=== PATIENT | female | born 1980 | race Two or more races ===

== ENCOUNTER 2019-08-03 18:09 | Emergency (ER) | payer SELFPAY ==
[~2019-08-03] VITALS: Ht 167.6 cm; Wt 176.9 kg
[2019-08-03] MEDS ORDERED: HYDR-3165 PO (19:02)
[2019-08-03] MEDS ORDERED: MELO7.5T29 PO (19:02)
[2019-08-03] MEDS ORDERED: SULF1TAB24 PO (19:02)
--- NOTE | 2019-08-03 19:02 | PHYS DOC ---
Past History Past Medical History: No Pertinent History Past Surgical History: No Surgical History Smoking: Non-smoker Alcohol Use: None Drug Use: None Adult General Chief Complaint Chief Complaint: ABSCESS HPI HPI Patient is a 39-year-old female presents with a draining lesion on her buttocks. This began 3-4 days ago. No fever. Purulent drainage. No trauma. No nausea or vomiting. No change in her usual blood sugar range, she is a diabetic patient. She ate shortly before arrival. She does get some relief with [id number] ibuprofen, taking a prescription dosage of this. No radiation of the the discomfort.[] Review of Systems Review of Systems Constitutional: Denies fever or chills [] Eyes: Denies change in visual acuity, redness, or eye pain [] HENT: Denies nasal congestion or sore throat [] Respiratory: Denies cough or shortness of breath [] Cardiovascular: No chest pain or palpitations[] GI: Denies abdominal pain, nausea, vomiting, bloody stools or diarrhea [] : Denies dysuria or hematuria [] Musculoskeletal: Denies back pain or joint pain [] Integument: See history of present illness[] Neurologic: Denies headache, focal weakness or sensory changes [] Endocrine: Denies polyuria or polydipsia [] All other systems were reviewed and found to be within normal limits, except as documented in this note. Allergies Allergies Allergies Coded Allergies Type Severity Reaction Last Updated Verified No Known Drug Allergies 03/11/14 No Physical Exam Physical Exam Constitutional: Well developed, well nourished, no acute distress, non-toxic appearance. [] HENT: Normocephalic, atraumatic, bilateral external ears normal, oropharynx moist, no oral exudates, nose normal. [] Eyes: PERRLA, EOMI, conjunctiva normal, no discharge. [] Neck: Normal range of motion, no tenderness, supple, no stridor. [] Cardiovascular:Heart rate regular rhythm, no murmur [] Lungs & Thorax: Bilateral breath sounds clear to auscultation [] Abdomen: Bowel sounds normal, soft, no tenderness, no masses, no pulsatile masses. [] Skin: Warm, dry, no erythema, no rash. There is a draining wound on the left buttocks, near the cleft. There is induration around this area 3 cm in diameter. This area was examined with bead wire insulator present[] Back: No tenderness, no CVA tenderness. [] Extremities: No tenderness, no cyanosis, no clubbing, ROM intact, no edema. [] Neurologic: Alert and oriented X 3, normal motor function, normal sensory function, no focal deficits noted. [] Psychologic: Affect normal, judgement normal, mood normal. [] EKG EKG [] Radiology/Procedures Radiology/Procedures [] Course & Med Decision Making Course & Med Decision Making Pertinent Labs and Imaging studies reviewed. (See chart for details) ED course: Patient arrived, was placed in bed, and tolerated exam well. Findings and plan were discussed with the patient and her sister. All questions were answered. She was discharged in improved condition. Medical decision making: Patient appears to have a cutaneous abscess. There is no evidence of a fistula from the rectal region. Nontoxic patient. We will attempt treatment with oral outpatient antibiotics and pain medicine.[] Dragon Disclaimer Dragon Disclaimer This electronic medical record was generated, in whole or in part, using a voice recognition dictation system. Departure Departure: Impression: Primary Impression: Cutaneous abscess of buttock Disposition: HOME, SELF-CARE Condition: IMPROVED Referrals: [facility] (PCP) Patient Instructions: Abscess Additional Instructions: Follow-up with your regular doctor in 2 days. If you do not have regular doctor list of local clinics will be provided. Take the medication as prescribed. Apply warm compresses to the area for 15 minutes at a time, at least 4 times a day. Return to the ER if worsening pain, fever of more than 101, or any other concerns. Scripts Hydrocodone Bit/Acetaminophen (NORCO 5-325 TABLET) 1 Each Tablet 1 TAB PO Q4-6HRS for severe pain, #20 TAB Prov: SANFORD ROMANO DO 08/03/19 Meloxicam (MELOXICAM) 7.5 Mg Tablet 7.5 MG PO DAILY for PAIN, #20 TAB Prov: SANFORD ROMANO DO 08/03/19 Sulfamethoxazole/Trimethoprim (BACTRIM DS TABLET) 1 Each Tablet 2 TAB PO BID for cutaneous abscess, #20 TAB Prov: SANFORD ROMANO DO 08/03/19 SANFORD ROMANO DO Aug 03, 2019 19:02
[2019-08-03 19:28] VITALS: BP 123/88
== END 2019-08-03 19:30 | disposition home or self-care (01) ==
LOC: ER 18:09
DX: L02.31 Cutaneous abscess of buttock (principal)
CPT/HCPCS: 99283

== ENCOUNTER 2020-06-07 16:26 | Emergency (ER) | payer SELFPAY ==
[~2020-06-07] VITALS: Ht 162.6 cm; Wt 188.5 kg
[~2020-06-07 16:26] MED LIST: HYDR-3165 PO; MELO7.5T29 PO; SULF1TAB24 PO
--- NOTE | 2020-06-07 16:48 | PHYS DOC ---
Past History Past Medical History: Hypertension, Other Additional Past Medical Histor: morbid obesity Past Medical History Recurrent gluteal abscesses and cellulitis Past Surgical History: No Surgical History Smoking: Non-smoker Alcohol Use: None Drug Use: None General Adult EDM: Chief Complaint: SHORTNESS OF BREATH HPI: HPI: ".. I ve been around 2 people in my family that have COVID.. My lpwpwcq-lw-[id number] is next door and he is got confirmed.. COVID... and I probably got it too... I am short of breath... Patient is a 40 year old female who presents with above hx and complaints dyspnea, wheezing, subjective fevers and chills, after exposure to b [id number] with confirmed COVID and brother with COVID. They all live in the same household. One [id number] has just returned from [facility] where he had been stranded for 6 months after the onset of the COVID epidemic. Patient has past medical history of morbid obesity, diabetes, hypertension, and recurrent gluteal abscesses. Patient denies any recent travel outside the [facility]. Patient denies any history of prior immunosuppression. Patient denies any use of tobacco or illicit drugs. Patient denies previous history of DVTs or coagulopathy. Patient not currently following with a consistent primary care. Review of Systems: Review of Systems: Constitutional: Subjective for complaints of fever or chills Eyes: Denies change in visual acuity HENT: Hx. nasal congestion Respiratory: History of a nonproductive cough, complaints of shortness of breath Cardiovascular: Denies chest pain or edema GI: Denies abdominal pain, nausea, vomiting, bloody stools or diarrhea : Denies dysuria Musculoskeletal: Denies back pain or joint pain Integument: Denies rash Neurologic: Denies headache, focal weakness or sensory changes Endocrine: Denies polyuria or polydipsia Lymphatic: Denies swollen glands Psychiatric: Denies depression or anxiety Heart Score: HEART Score for Chest Pain: HEART Score for Chest Pain Response (Comments) Value History Moderately Suspicious 1 ECG Nonspecific Repolarizatio 1 Age < 45 0 Risk Factors 1 or 2 Risk Factors 1 Troponin < Normal Limit 0 Total 3 Risk Factors: Risk Factors: DM, Current or recent (<one month) smoker, HTN, HLP, family history of CAD, obesity. Risk Scores: Score 0 - 3: 2.5% MACE over next 6 weeks - Discharge Home Score 4 - 6: 20.3% MACE over next 6 weeks - Admit for Clinical Observation Score 7 - 10: 72.7% MACE over next 6 weeks - Early Invasive Strategies Family History: Family History: Two family members have positive COVID test Current Medications: Current Meds: See nursing for home meds Allergies: Allergies: Allergies Coded Allergies Type Severity Reaction Last Updated Verified No Known Drug Allergies 03/11/14 No Physical Exam: PE: Constitutional: no acute distress, non-toxic appearance. [] HENT: Normocephalic, atraumatic, bilateral external ears normal, oropharynx moist, postnasal drainage, no oral exudates, nose swollen turbinates and clear rhinorrhea Eyes: PERRLA, EOMI, conjunctiva normal, no discharge. [] Neck: Normal range of motion, no tenderness, supple, no stridor. [] Cardiovascular:Heart rate regular rhythm, no murmur [] Lungs & Thorax: Bilateral breath sounds equal at apex with a few scattered wheezes on auscultation [] Abdomen: Bowel sounds normal, soft, no tenderness, no masses, no pulsatile masses. Morbidly obese. Skin: Warm, dry, no erythema, no rash. [] Back: No tenderness, no CVA tenderness. [] Extremities: No tenderness, no cyanosis, no clubbing, ROM intact, bilateral ankle edema. No cording appreciated Neurologic: Alert and oriented X 3, moves all extremities on request, has distal sensory,, no focal deficits noted. [] Psychologic: Affect anxious, judgement normal, mood normal. [] EKG: EKG: My interpretation EKG shows a sinus rhythm at 89 bpm. There is leftward axis. No findings of acute STEMI of contralateral changes. [] Radiology/Procedures: Radiology/Procedures: [][address] [address] IMAGING REPORT Signed PATIENT: ALEXI KIM ACCOUNT: [id number] : 1980 LOCATION: ER AGE: 40 SEX: F EXAM STATUS: REG ER ORD. PHYSICIAN: RADHA KUMAR MD REASON: DYSPNEA, COVID EX PROCEDURE: CHEST PA & LATERAL CHEST PA LATERAL History: DYSPNEA, COVID EX Comparison: None. Findings: Frontal and lateral views of the chest were obtained. The cardiomediastinal silhouette is normal. Pulmonary vasculature is normal. The lungs are clear. No pleural effusion or pneumothorax is seen. There is no acute bone abnormality. IMPRESSION: No acute cardiopulmonary process. Electronically signed by: Chase Christian MD (06/07/2020 10:33 PM) [facility] DICTATED AND SIGNED BY: CHASE CHRISTIAN MD DATE: 06/07/202232 CC: RADHA KUMAR MD; PCP,NO ~ Course & Med Decision Making: Course & Med Decision Making Pertinent Labs and Imaging studies reviewed. (See chart for details) Pt. elected to not do CT angio- wants to be treated clinically for DVT and PE. Patient requesting discharge where need to return if desaturation or low blood gas or markedly increased heart rate or increased symptoms. Patient has not self isolate. Patient follow-up primary care. Patient return if any concerns. Patient use MDI 2 puffs 4 times a day. Patient is taking Zithromax 2 50 mg a day for 7 days. Patient will start on Eliquis 5 mg twice a day then after 7 days go to 5 mg of Eliquis once a day by that time she has followed up with primary care. Patient do not go anywhere without a mask. Continue self-is olation. Take Tylenol and ibuprofen for pain. Return if any concerns. Must follow-up. Impression: 1. Hx confirmed exposure of two confirmed COVID cases-live in the same household 2. Diabetes glucose 276 3. Elevated d-dimer 0.90 4. Elevated AST 103, ALT 109, alk phos 166 5. Morbid obesity 6 . Hypertension [] Dragon Disclaimer: Ryan Disclaimer: This electronic medical record was generated, in whole or in part, using a voice recognition dictation system. Departure Departure: Disposition: 01 HOME/RESIDENCE PRIOR TO ADM Condition: STABLE Referrals: [facility] (PCP) Scripts Apixaban (ELIQUIS) 5 Mg Tablet 5 MG PO DAILY for covid for 7 Days, #7 TAB Prov: RADHA KUMAR MD 06/07/20 Apixaban (ELIQUIS) 5 Mg Tablet 5 MG PO BID for covid for 7 Days, #14 TAB Prov: RADHA KUMAR MD 06/07/20 Azithromycin (ZITHROMAX) 250 Mg Tablet 250 MG PO DAILY for ANTI-BIOTIC for 7 Days, #7 TAB 0 Refills Prov: RADHA KUMAR MD 06/07/20 Justification of Admission: Justification of Admission: Justification of Admission Dx: N/A Dragon Disclaimer This chart was dictated in whole or in part using Voice Recognition software in a busy, high-work load, and often noisy Emergency Department environment. It may contain unintended and wholly unrecognized errors or omissions. RADHA KUMAR MD Jun 07, 2020 16:48
[2020-06-07] MEDS ORDERED: IV RINGERS SOLUTION,LACTATED 1,000 ML IV SCH (16:50)
[2020-06-07] MEDS ORDERED: ASPIRIN CHEWABLE 81 MG TABLET. PO ONE (17:00)
[2020-06-07 17:52] LABS: BASO % 0 % (0-3); EOS # 0.1 x10^3/uL (0.0-0.7); EOS % 1 % (0-3); HEMATOCRIT 44.7 % (36.0-47.0); LYMPH # 2.8 x10^3/uL (1.0-4.8); LYMPH % 46 % (24-48); MEAN CORPUSCULAR HEMOGLOBIN 30 pg (25-35); MEAN CORPUSCULAR HGB CONC 34 g/dL (31-37); MEAN CORPUSCULAR VOLUME 89 fL (79-100); MONO # 0.3 x10^3/uL (0.0-1.1); MONO % 4 % (0-9); NEUT # 2.9 x10^3uL (1.8-7.7); NEUT % 48 % (31-73); PLATELET COUNT 199 x10^3/uL (140-400); RED BLOOD COUNT 5.03 x10^6/uL (3.50-5.40); RED CELL DISTRIBUTION WIDTH 13.1 % (11.5-14.5)
--- NOTE | 2020-06-07 18:02 | EKG ---
[facility] ED [facility] [place] [id number] Test Date: 2020-06-07 Test Time: 17:04:43 Pat Name: ALEXI KIM Department: Room: Gender: F Call Center Assistant: : 1980 Requested By: RADHA KUMAR Order Number: [id number] Reading MD: Measurements Intervals [place] Rate: 89 P: 0 OK: 144 QRS: -7 QRSD: 82 T: 34 QT: 372 QTc: 454 Interpretive Statements SINUS RHYTHM LEFTWARD AXIS R-S TRANSITION ZONE IN V LEADS DISPLACED TO THE LEFT OTHERWISE NORMAL ECG RI6.02 No previous ECG available for comparison
[2020-06-07 18:04] LABS: CALCIUM 9.1 mg/dL (8.5-10.1); CREATININE 0.7 mg/dL (0.6-1.0); GFR 92.2; POTASSIUM 3.5 mmol/L (3.5-5.1)
[2020-06-07 18:04] LABS: BGAS PH 7.49 (7.35-7.45)
[2020-06-07 18:17] LABS: ALBUMIN 2.7 g/dL (3.4-5.0); DIRECT BILIRUBIN 0.1 mg/dL (0.0-0.2); MAGNESIUM 1.9 mg/dL (1.8-2.4); TOTAL BILIRUBIN 0.3 mg/dL (0.2-1.0)
[2020-06-07 19:06] VITALS: BP 150/119
[2020-06-07 20:38] LABS: BARBITURATES NEG (NEG); BENZODIAZEPINES NEG (NEG); CANNABINOIDS NEG (NEG); COCAINE NEG (NEG); METHADONE NEG (NEG); OPIATES NEG (NEG); PHENCYCLIDINE NEG (NEG)
[2020-06-07 20:39] LABS: AMPHETAMINE/METHAMPHETAMINE NEG (NEG)
[2020-06-07 20:42] LABS: BILIRUBIN,URINE NEG (NEG); CLARITY,URINE CLEAR; COLOR,URINE YELLOW; GLUCOSE,URINE NEG (NEG); NITRITE,URINE NEG (NEG); UROBILINOGEN,URINE 0.2 mg/dL (0.2 mg/dL)
[2020-06-07 20:43] LABS: BACTERIA,URINE 0 /HPF (0-FEW); WBC,URINE RARE /HPF (0-4)
[2020-06-07] MEDS ORDERED: ENOXAPARIN ** NOTE DOSE ** SYRINGE SQ ONE (21:00)
[2020-06-07] MEDS ORDERED: IOHEXOL 350 MG/ML 100 ML VIAL. IV ONE (21:00)
[2020-06-07] MEDS ORDERED: AZITHROMYCIN 250 MG TABLET. PO ONE (22:00)
[2020-06-07] MEDS ORDERED: APIX5TAB3 PO ×2 (22:00)
[2020-06-07] MEDS ORDERED: ALBUTEROL SULFATE 8GM INHALER. INH ONE (22:00)
[2020-06-07] MEDS ORDERED: AZIT250T PO (22:00)
--- NOTE | 2020-06-07 22:36 | RAD ---
CHEST PA LATERAL History: DYSPNEA, COVID EX Comparison: None. Findings: Frontal and lateral views of the chest were obtained. The cardiomediastinal silhouette is normal. Pulmonary vasculature is normal. The lungs are clear. No pleural effusion or pneumothorax is seen. There is no acute bone abnormality. IMPRESSION: No acute cardiopulmonary process. Electronically signed by: Chase Benz MD (06/07/2020 10:33 PM) [facility]
== END 2020-06-07 22:51 | disposition home or self-care (01) ==
LOC: ER 16:26
DX: Z20.828 Contact with and (suspected) exposure to other viral communicable diseases (principal); E11.9 Type 2 diabetes mellitus without complications; R79.1 Abnormal coagulation profile; R79.89 Other specified abnormal findings of blood chemistry; E66.01 Morbid (severe) obesity due to excess calories; I10 Essential (primary) hypertension; Z68.45 Body mass index [BMI] 70 or greater, adult
CPT/HCPCS: 36415; 71046; 80048; 80076; 80307; 81001; 81025; 82550; 82803; 83690; 83735; 83880; 84443; 84484; 85025; 85379; 85610; 85730; 93005; 94640; 96360; 96372; 99285; J0456; J1650; J7120; J7613; 94664